=== PATIENT | female | born 1985 ===

== ENCOUNTER 2016-09-25 19:40 | Emergency (ER) | payer BC ==
[2016-09-25 19:52] VITALS: BP 152/93
--- NOTE | 2016-09-25 20:36 | UC ---
Respiratory Complaint HPI - HPI Summary HPI Summary: 31 y/o female presents to the urgent care c/o of nonproductive cough for the past 3 days associated with sore throat, headache. She also states now she is loosing her voice today. Pt. denies SOB, chest pain, N/V/D. - History of Current Complaint Chief Complaint: UCRespiratory Stated Complaint: URI Time Seen by Provider: 09/25/16 20:01 Hx Obtained From: Patient Hx Last Menstrual Period: 2 wks ago ?: No Onset/Duration: Sudden Onset, Lasting Days, Still Present Timing: Constant Severity Initially: Moderate Severity Currently: Moderate Pain Intensity: 6 - headache Pain Scale Used: 0-10 Numeric Character: Cough: Nonproductive Aggravating Factors: Deep Breaths Alleviating Factors: Nothing Associated Signs And Symptoms: Negative: Dyspnea, Fever, Chills, Wheezing - Risk Factors Pulmonary Embolism Risk Factors: Negative Cardiac Risk Factors: Negative Pseudomonas Risk Factors: Negative Tuberculosis Risk Factors: Negative - Allergies/Home Medications Allergies/Adverse Reactions: Allergies Allergy/AdvReac Type Severity Reaction Status Date / Time No Known Allergies Allergy Verified 09/25/16 19:53 Home Medications: Home Medications Ascorbic Acid TAB* [Vitamin C TAB*] 09/25/16 [History] BuPROPion XL* [Bupropion XL*] 09/25/16 [History] Citalopram TAB* [Celexa TAB*] 09/25/16 [History] Pantoprazole Sodium [Protonix] 09/25/16 [History] Vitamin TAB* 09/25/16 [History] Valacyclovir HCl [Valtrex] 09/25/16 [History Confirmed 09/25/16] PMH/Surg Hx/FS Hx/Imm Hx Previously Healthy: Yes Cardiovascular History Of: Reports: Hypertension - diet control after bariatric surgery - Surgical History Surgical History: Yes Surgery Procedure, Year, and Place: right knee x 5. tonsils. Weight loss surgery. Anxiety/Depression - Family History Known Family History: Positive: Hypertension - Social History Occupation: Employed Full-time Lives: Alone Alcohol Use: Occasionally Substance Use Type: None Smoking Status (MU): Never Smoked Tobacco Review of Systems Constitutional: Negative Skin: Negative Eyes: Negative ENT: Sore Throat - mild Respiratory: Cough - nonproductive Cardiovascular: Negative Gastrointestinal: Negative Genitourinary: Negative Motor: Negative Neurovascular: Negative Musculoskeletal: Negative Neurological: Negative Psychological: Negative All Other Systems Reviewed And Are Negative: Yes Physical Exam Triage Information Reviewed: Yes Appearance: Well-Appearing, No Pain Distress, Well-Nourished Vital Signs: Initial Vital Signs Temp 97.0 F 09/25/16 19:48 Pulse 84 09/25/16 19:48 Resp 18 09/25/16 19:48 BP 152/93 09/25/16 19:48 Pulse Ox 99 09/25/16 19:48 Vital Signs Reviewed: Yes Eye Exam: Normal Eyes: Positive: Conjunctiva Clear ENT: Positive: Hearing grossly normal, Pharyngeal erythema - mild no exudate present. No tosils, Nasal drainage - clear, TMs normal Dental Exam: Normal Neck exam: Normal Neck: Positive: Supple, Nontender, No Lymphadenopathy Respiratory Exam: Normal Respiratory: Positive: Chest non-tender, Lungs clear, Normal breath sounds Cardiovascular Exam: Normal Cardiovascular: Positive: RRR, No Murmur, Pulses Normal Abdominal Exam: Normal Abdomen Description: Positive: Nontender, No Organomegaly, Soft Bowel Sounds: Positive: Present Musculoskeletal Exam: Normal Neurological Exam: Normal Psychological Exam: Normal Skin Exam: Normal UC Diagnostic Evaluation - Laboratory O2 Sat by Pulse Oximetry: 99 Respiratory Course/Dx - Course Course Of Treatment: Upper Respiratory infection: most likely viral. Patient advised to take Ibuprofen OTC to improve symptoms. cough: patient Rx Tessalon tabs PO, albuterol inhaler, increase fluid intake to alleviate symptoms. - Differential Dx/Diagnosis Differential Diagnosis/HQI/PQRI: Asthma, Bronchitis, Laryngitis Provider Diagnoses: Upper respiratory infection,. Cough Discharge - Discharge Plan Condition: Stable Disposition: HOME Prescriptions: Albuterol HFA INHALER* [Ventolin HFA Inhaler*] 1 puff INH Q4H PRN #1 mdi PRN Reason: Cough Benzonatate CAP* [Tessalon 100 MG CAP*] 100 mg PO TID #15 cap Patient Education Materials: Upper Respiratory Infection (ED) Referrals: Swapna Giron MD [Primary Care Provider] - Additional Instructions: Please take medications as directed. Increase fluid intake. If symptoms worsen please f/u with you PCP of return to the urgent care for further treatment.
== END 2016-09-25 20:39 | disposition home or self-care (01) ==
LOC: UCEAST 19:40
DX: J06.9 Acute upper respiratory infection, unspecified (principal); R05 Cough; I10 Essential (primary) hypertension; Z98.84 Bariatric surgery status
CPT/HCPCS: 99212; G0463

== ENCOUNTER 2017-05-17 13:42 | Emergency (ER) | payer BC ==
[2017-05-17 15:54] LABS: ABS Basophils 0 10^3/ul (0-0.2); ABS Eosinophils 0 10^3/ul (0-0.6); ABS Lymphocytes 1.7 10^3/ul (1.0-4.8); ABS Monocytes 0.2 10^3/ul (0-0.8); ABS Neutrophils 3.9 10^3/ul (1.5-7.7); ABS Nucleated RBC 0 10^3/ul; Eosinophil % 0.7 % (0-6); Hematocrit 39 % (35-47); Hemoglobin 13.3 g/dl (12.0-16.0); Lymphocyte % 29.2 % (25-47); Mean Corpuscular HGB Conc 35 g/dl (31-36); Mean Corpuscular Hemoglobin 30 pg (27-31); Mean Corpuscular Volume 86 fL (80-97); Mean Platelet Volume 7 um3 (7.4-10.4); Nucleated Red Blood Cells % 0; Platelet Count 248 10^3/ul (150-450); Red Blood Count 4.48 10^6/ul (4.0-5.4); Red Cell Distribution Width 13 % (10.5-15); White Blood Count 5.9 10^3/ul (3.5-10.8)
[2017-05-17 16:42] LABS: EGFR Non-African American 87.4 (>60)
[2017-05-17 17:25] VITALS: BP 143/99
--- NOTE | 2017-05-18 11:49 | ED ---
July Grewal Thomas, scribed for Alonso Meier MD on 05/17/17 at 1532 . Palpitations / Dysrhythmia - HPI Summary HPI Summary: Patient is a 31 year old female who presents with palpitations characterized as flutters that have been frequent for the past 24 hours. These palpitations make her feel short of breath, lightheaded, and momentarily disoriented. Patient takes antidepressant, antiviral (valacyclovir), and a for a gastric sleeve surgery. Patient denies thyroid issues. The patient was admitted to [facility] three years ago for tachycardia. - History of Current Complaint Chief Complaint: EDDysrhythmPalp Time Seen by Provider: 05/17/17 14:37 Hx Obtained From: Patient Onset/Duration: Lasting Hours - 24 hours, Still Present Timing: Constant Severity Initially: Moderate Severity Currently: Moderate Character: Fluttering Aggravating: Nothing Alleviating: Nothing Associated Signs & Symptoms: Lightheadedness, Shortness of Breath - Allergy/Home Medications Allergies/Adverse Reactions: Allergies Allergy/AdvReac Type Severity Reaction Status Date / Time No Known Allergies Allergy Verified 09/25/16 19:53 Home Medications: Home Medications Pantoprazole TAB (NF) [Protonix TAB (NF)] 40 mg PO DAILY 05/17/17 [History Confirmed 05/17/17] ValACYclovir (*) [Valtrex 500 mg (*)] 500 mg PO DAILY 05/17/17 [History Confirmed 05/17/17] diPHENhydraMINE PO* [Benadryl PO 50 MG CAP*] 50 mg PO BEDTIME PRN 05/17/17 [ History Confirmed 05/17/17] PMH/Surg Hx/FS Hx/Imm Hx Previously Healthy: Yes Cardiovascular History: Reports: Hx Hypertension - diet control after bariatric surgery EENT History: Denies: Hx Deafness - Surgical History Surgery Procedure, Year, and Place: right knee x 5. tonsils. Weight loss surgery. Anxiety/Depression - Immunization History Immunizations Up to Date: Yes Infectious Disease History: Unable to Obtain/Confirm Infectious Disease History: Denies: Traveled Outside the [place] in Last 30 Days - Family History Known Family History: Positive: Hypertension - Social History Alcohol Use: Occasionally Substance Use Type: Reports: None Smoking Status (MU): Never Smoked Tobacco Review of Systems Positive: Palpitations Positive: Shortness Of Breath Neurological: Other - Lightheaded, disoriented All Other Systems Reviewed And Are Negative: Yes Physical Exam - Summary Physical Exam Summary: Appearance: The patient is well-nourished in no acute distress and in no acute pain. Skin: The skin is warm and dry and skin color reflects adequate perfusion. HEENT: The head is normocephalic and atraumatic. The pupils are equal and reactive. The conjunctivae are clear and without drainage. Nares are patent and without drainage. Mouth reveals moist mucous membranes and the throat is without erythema and exudate. The external ears are intact. The ear canals are patent and without drainage. The tympanic membranes are intact. Neck: the neck is supple with full range of motion and non-tender. There are no carotid bruits. There is no neck vein distension. Respiratory: Chest is non-tender. Lungs are clear to auscultation and breath sounds are symmetrical and equal. Cardiovascular: Heart is regular rate and irregularly irregular rhythm. There is no murmur or rub auscultated. There is no peripheral edema and pulses are symmetrical and equal. Abdomen: The abdomen is soft and non-tender. There are normal bowel sounds heard in all four quadrants and there is no organomegaly palpated. Musculoskeletal: There is no back tenderness noted. Extremities are non-tender with full range of motion. There is good capillary refill. There is no peripheral edema or calf tenderness elicited. Neurological: Patient is alert and oriented to person, place and time. The patient has symmetrical motor strength in all four extremities. Cranial nerves are grossly intact. Deep tendon reflexes are symmetrical and equal in all four extremities. Psychiatric: The patient has an appropriate affect and does not exhibit any anxiety or depression. Triage Information Reviewed: Yes Vital Signs On Initial Exam: Initial Vitals Temp Pulse Resp BP Pulse Ox 99.5 F 85 16 159/94 100 05/17/17 13:50 05/17/17 13:50 05/17/17 13:50 05/17/17 13:50 05/17/17 13:50 Vital Signs Reviewed: Yes - [place] Coma Scale Coma Scale Total: 15 Diagnostics - Vital Signs Vital Signs Temp Pulse Resp BP Pulse Ox 05/17/17 15:00 74 15 149/90 100 05/17/17 14:50 156/96 05/17/17 14:46 74 16 100 05/17/17 14:15 98.6 F 88 18 156/82 100 05/17/17 14:05 80 100 05/17/17 13:50 99.5 F 85 16 159/94 100 - Laboratory Lab Results: Lab Results 05/17/17 05/17/17 05/17/17 Range/Units 15:40 15:40 15:40 WBC 5.9 (3.5-10.8) 10^3/ul RBC 4.48 (4.0-5.4) 10^6/ul Hgb 13.3 (12.0-16.0) g/dl Hct 39 (35-47) % MCV 86 (80-97) fL MCH 30 (27-31) pg MCHC 35 (31-36) g/dl RDW 13 (10.5-15) % Plt Count 248 (150-450) 10^3/ul MPV 7 L (7.4-10.4) um3 Neut % (Auto) 65.7 (38-83) % Lymph % (Auto) 29.2 (25-47) % [place] % (Auto) 4.1 (1-9) % Eos % (Auto) 0.7 (0-6) % Baso % (Auto) 0.3 (0-2) % Absolute Neuts (auto) 3.9 (1.5-7.7) 10^3/ul Absolute Lymphs (auto) 1.7 (1.0-4.8) 10^3/ul Absolute Monos (auto) 0.2 (0-0.8) 10^3/ul Absolute Eos (auto) 0 (0-0.6) 10^3/ul Absolute Basos (auto) 0 (0-0.2) 10^3/ul Absolute Nucleated RBC 0 10^3/ul Nucleated RBC % 0 Sodium 138 (133-145) mmol/L Potassium 3.5 (3.5-5.0) mmol/L Chloride 105 (101-111) mmol/L Carbon Dioxide 27 (22-32) mmol/L Anion Gap 6 (2-11) mmol/L BUN 11 (6-24) mg/dL Creatinine 0.77 (0.51-0.95) mg/dL Est GFR ( Amer) 112.4 (>60) Est GFR (Non-Af Amer) 87.4 (>60) BUN/Creatinine Ratio 14.3 (8-20) Glucose 90 (70-100) mg/dL Lactic Acid 0.6 (0.5-2.0) mmol/L Calcium 9.5 (8.6-10.3) mg/dL Magnesium 2.1 (1.9-2.7) mg/dL Total Bilirubin 0.70 (0.2-1.0) mg/dL AST 16 (13-39) U/L ALT 10 (7-52) U/L Alkaline Phosphatase 56 (34-104) U/L Troponin I 0.00 (<0.04) ng/mL Total Protein 6.7 (6.4-8.9) g/dL Albumin 4.1 (3.2-5.2) g/dL Globulin 2.6 (2-4) g/dL Albumin/Globulin Ratio 1.6 (1-3) TSH 2.31 (0.34-5.60) mcIU/mL Beta HCG, Quant < 0.60 mIU/mL Result Diagrams: 05/17/17 15:40 05/17/17 15:40 Lab Statement: Any lab studies that have been ordered have been reviewed, and results considered in the medical decision making process. - EKG 14:31 Cardiac Rate: NL EKG Rhythm: Sinus Rhythm - at 74 BPM Course/Dx - Course Course Of Treatment: Ms. Joseph presented with palpations and was seen to have fairly frequent PVCs on the monitor. He labs and ecg were normal and she was observed for several hours on the monitor. I reassured her that these were not dangerous but recommended that she F/U. They are very aggravating to her and she may need more W/U. - Diagnoses Provider Diagnoses: PVCs (premature ventricular contractions) Discharge - Discharge Plan Condition: Stable Disposition: HOME Patient Education Materials: Premature Ventricular Contractions (ED) Referrals: Swapna Giron MD [Primary Care Provider] - 3 Days Additional Instructions: Follow up with your primary care provider in three days. Return to the emergency department for any new or worsening symptoms. The documentation as recorded by the July arnold Thomas accurately reflects the service I personally performed and the decisions made by , Alonso Meier MD.
== END 2017-05-17 17:24 | disposition home or self-care (01) ==
LOC: ED 13:42
DX: I49.3 Ventricular premature depolarization (principal)
CPT/HCPCS: 36415; 80053; 83605; 83735; 84443; 84484; 84702; 85025; 93005; 99282